=== PATIENT | female | born 1985 | race Two or more races ===

== ENCOUNTER 2024-03-08 08:24 | Outpatient (CLI) | payer OTHER ==
[~2024-03-08 08:24] MED LIST: ADULT LOW DOSE81 M1 PO; FOLIC ACID0.8 M1 PO; PRENATAL TABLE1 EAC1 PO
== END 2024-03-08 08:27 | disposition home or self-care (01) ==
LOC: PRENATAL 08:24
PROVIDERS: ATTEND Obstetrics & Gynecology Maternal & Fetal Medicine
DX: O26.843 Uterine size-date discrepancy, third trimester (principal); O36.8130 Decreased fetal movements, third trimester, not applicable or unspecified; O36.5930 Maternal care for other known or suspected poor fetal growth, third trimester, not applicable or unspecified; Z3A.38 38 weeks gestation of pregnancy; O35.10X0 Maternal care for (suspected) chromosomal abnormality in fetus, unspecified, not applicable or unspecified; O09.523 Supervision of elderly multigravida, third trimester; Z87.51 Personal history of pre-term labor